=== PATIENT | female | born 1950 | race Caucasian/White ===

== ENCOUNTER 2019-04-14 01:48 | Emergency (ER) | payer MEDICARE, OTHER ==
[2019-04-14] MEDS: IBUPROFEN 600 MG TAB PO (02:30)
[2019-04-14] MEDS: ACETAMINOPHEN 325 MG TAB PO (02:30)
[2019-04-14 03:00] LABS: URIC ACID 8.9 mg/dl (3.1-7.9)
== END 2019-04-14 04:08 | disposition home or self-care (01) ==
LOC: FTE 01:48
DX: M10.9 Gout, unspecified (principal); I10 Essential (primary) hypertension
CPT/HCPCS: 36415; 73630; 84560; 93971; 99285-25